=== PATIENT | male | born 1995 | race Caucasian/White ===

== ENCOUNTER → 2024-02-21 11:50 | Outpatient (REF) | payer MEDICARE, SELFPAY | LOC: EEG 11:50 | PROVIDERS: ATTENDING PHYSICIAN Psychiatry & Neurology Neurology; FAMILY PHYSICIAN Family Medicine | DX: F84.0 Autistic disorder (principal); R25.9 Unspecified abnormal involuntary movements | CPT/HCPCS: 95812 ==

== ENCOUNTER 2024-08-05 10:12 | Emergency (ER) | payer MEDICARE, SELFPAY ==
[2024-08-05 10:18] VITALS: BP 131/87
--- NOTE | 2024-08-05 10:50 | ED.GENMED ---
History of Present Illness
General
Chief Complaint: Oral/Mouth Problem
Source: patient
Exam Limitations: none
Time Seen by Provider: 08/05/24 10:33
Nursing documentation reviewed up to this point in time: agreed with
History of Present Illness
History of Present Illness:
pt is a 28 y/o M with h/o autism nonverbal, OCD, HTN, seizures
here after pointing to his mouth this morning and the staff noticing somem swelling to the R cheek area. he apparently ate his breakfast but they aren't sure how it went down, if he had trouble chewing or not
he doesn't verbalize much so the history is limiting
he wasn't noticed to have any swelling or issues yesterday by staff
no known fever, vomiting, trouble swallowing, trouble breathing
no recent dental visits
Past History
Past History
ED Past Medical History: HTN, Psychiatric (Anxiety, impulse control disorder, autism) and Other (constipation with hemorrhoids, autism, OCD, esophagitis, dermatitis,)
ED Past Surgical History: None
Patient has exhibited threatening behavior?: Yes
Date of threatening behavior? (updated with each occurrence): 08/25/23
Social History
Tobacco: Non-smoker
Alcohol: None
Drug: None
Personal: Single
Living: assisted living
Employment: Not employed
Family History
Family History: Unable to obtain
Review of Systems
Review of Systems
Allergies reviewed?: Yes
Unable to obtain full review of systems at this time due to: non-verbal
Other source history: coordinated provider
Phy Exam
Physical Exam
Physical Exam:
GENERAL: Alert , in no apparent distress
NECK: Supple
ENT: o/p clr, mmm.
no obvious dental tenderness, no obvious fractures, no gingival swelling, no periapical abscess,
able to open mouth with encouragment 2 fingers (does not see to have pain but pt apprehensive about opening more)
no obvious parotid gland swelling, no sublingual swelling, no obvious peritonsillar edema or uvular deviation
difficult exam but i was able to visualize back of the throat
neck supple
no CYNTHIA
able to move neck
not drooling
CARDIAC: Regular rate and rhythm .
LUNGS: Clear breath sounds bilaterally, no acute respiratory distress, no wheezes/rales/rhonchi
SKIN: Warm and dry, skin intact.
PSYCH: nonverbal, cooperative, follows commands
Course
Orders/Labs/Results
Orders:
Orders
08/05/24 10:48
Clindamycin HCl [Cleocin] 300 mg PO NOW STA
Vital Signs
Initial and Last Documented VS:
Initial Vital Signs
Temp Pulse Resp BP Pulse Ox
97.9 F 84 16 131/87 99
08/05/24 10:18 08/05/24 10:18 08/05/24 10:18 08/05/24 10:18 08/05/24 10:18
Last Documented Vital Signs
Temp Pulse Resp BP Pulse Ox
97.9 F 84 16 131/87 99
08/05/24 10:18 08/05/24 10:18 08/05/24 10:18 08/05/24 10:18 08/05/24 10:18
MDM/Problems Addressed
Differential Diagnosis Includes:
parotiditis, dental abscess, pharyngitis/tonsillitis, sialolithaisis,
MDM/Problems Addressed:
28 y/o M nonverbal here with pointing to his mouth when they asked if he had pain
pt was given breakfast this morning by different staff who are with him now without any known difficulty eating but they noticed his face was a little swollen
pt has not had fever, drooling
he is nonverbal so difficult to assess
afebrile
nontoxic
doesn't appear in pain
very mild facial swelling R maxillary/mandible area; nontender; no cellulitis
opens mouth 2 finger breadths; seems to be more related to anxiety than pain
no obvious abnormalities otherwise on oral exam
seen by ed attending
will trial abx, clinda, which would cover dental infection, tonsillar infection, bacterial parotiidis and encourage staff to wtach closely for worsening pain, fever, swelling, trismus, drooling etc
an dreturn prn
*Critical Care Note
Total Time (30-74mins, 75-104mins- exclusive of procedures): Not Applicable
ED Attending Note
-
Portions of this chart may have been created with voice recognition software.� Occasional wrong word or��sound alike� substitutions may have occurred due to the inherent limitations of voice recognition software.
Discharge Plan
Departure
Date of Disposition: 08/05/24
Time of Disposition: 11:00
Instructions: Tooth Abscess (DC)
Prescriptions:
New
clindamycin HCl 300 mg capsule
300 mg PO Q6H Qty: 40 0RF
No Action
clonidine HCl 0.1 MG tablet
0.1 mg PO DAILY
acetaminophen 325 MG tablet
650 mg PO Q4HPRN PRN (Reason: pain/fever)
polyethylene glycol 3350 17 GRAMS powder in packet
17 grams PO PRN PRN (Reason: constipation)
loxapine succinate 25 MG capsule
75 mg PO QPM
loxapine succinate 25 MG capsule
50 mg PO DAILY
sertraline 100 MG tablet
100 mg PO DAILY
clonazepam 1 MG tablet
1 mg PO TID
pantoprazole [Protonix] 20 MG tablet,delayed release (DR/EC)
20 mg PO DAILY
hydrocortisone 1 APPLIC cream
1 applic topical BID
divalproex 500 MG tablet extended release 24 hr
1,000 mg PO BID
docusate sodium 100 MG capsule
100 mg PO DAILYPRN PRN (Reason: constipation)
fluticasone propionate [Flovent HFA] 1 PUFF HFA aerosol inhaler
2 puff inhalation R BID
mupirocin 1 APPLIC ointment
1 applic topical PRN PRN (Reason: atopic dermatitis)
alum-mag hydroxide-simeth [Mag-Al Plus] 30 ML suspension
30 ml PO QIDPRN PRN (Reason: indigestion)
loratadine 10 MG tablet
10 mg PO DAILY
Metamucil Sugar-Free (aspart) 174 GM powder
1,040 gm PO DAILY
Calci-Max 1 EACH capsule
1 tab PO DAILY
L.acidoph, paracasei,B. lactis 1 EACH capsule
1 ea PO DAILY
mupirocin 2 % ointment
1 applic topical BID Qty: 22 0RF
clonazepam [Klonopin] 2 mg tablet
2 mg PO TID Qty: 30 0RF
cephalexin 500 mg capsule
500 mg PO BID 7 Days Qty: 14 0RF
Activity Restrictions/Additional Instructions:
QUENTIN PROBABLY HAS A DENTAL INFECTION
HE HAD NO OBVIOUS SIGN OF AN ABSCESS TO DRAIN TODAY BUT HE PROBABLY SHOULD SEE A DENTIST THIS WEEK OR NEXT
WATCH HIM CLOSELY
IF HIS SWELLING GETS WORSE, OR HE HAS A FEVER, TROUBLE EATING OR OPENING MOUTH, DROOLING, LETHARGY, NECK SWELLING, ETC HE NEEDS TO BE SEEN IMMEDIATELY
OTHERWISE CLINDAMYCIN 300 MG 1 TAB 4 TIMES ADAY FOR 10 DAYS
SOFT FOODS FOR NOW
MOTRIN FOR PAIN/SWELLING NEEDED
Interventions
Interventions:
*Risk Screen - Suicide Last Done: 08/05/24 10:19
*Neglect/Abuse Screening Last Done: 08/05/24 10:19
Discharge Date and Time
Print Language: CITIZEN OF [place]
[2024-08-05] MEDS: CLEOCIN 300 MG PO (11:04)
--- NOTE | 2024-08-05 11:13 | EDRN ---
Reviewed discharge instructions with patient's caregivers. Verbalized understanding. Ambulated with steady gait to the lobby.
[2024-08-05 11:15] VITALS: BP 132/74
== END 2024-08-05 11:10 | disposition home or self-care (01) ==
LOC: EMR 10:12
PROVIDERS: EMERGENCY PHYSICIAN Emergency Medicine; FAMILY PHYSICIAN Family Medicine
DX: R22.0 Localized swelling, mass and lump, head (principal); F84.0 Autistic disorder; I10 Essential (primary) hypertension
CPT/HCPCS: 99283

== ENCOUNTER 2024-09-09 14:07 | Emergency (ER) | payer MEDICARE, SELFPAY ==
[2024-09-09 14:10] VITALS: BP 141/77
--- NOTE | 2024-09-09 14:51 | ED.GENMED ---
History of Present Illness
General
Chief Complaint: Head Injury
Source: patient
Exam Limitations: none
Time Seen by Provider: 09/09/24 14:10
Nursing documentation reviewed up to this point in time: agreed with
History of Present Illness
History of Present Illness:
The patient is a 28-year-old man with a past medical history of autism and psychosis, who is nonverbal at baseline, and brought in by caretakers after he got extremely agitated and banged his head against a glass window in a van, causing the window
to break and shatter. Caretakers report that there was no loss of consciousness. They report that his behavior has been completely normal for him and at his baseline. The injury occurred about an hour prior to arrival to the ED. They deny any
lethargy or vomiting and report he is 'acting as if nothing happened'. Patient has no cut or abrasion to his forehead. He does have mild redness to forehead. Caretakers report that he had been on his way to get lab work done at [facility] in
[place], got angry about having to do so which caused this episode.
Past History
Past History
ED Past Medical History: HTN, Psychiatric (Anxiety, impulse control disorder, autism) and Other (constipation with hemorrhoids, autism, OCD, esophagitis, dermatitis,)
ED Past Surgical History: None
Patient has exhibited threatening behavior?: Yes
Date of threatening behavior? (updated with each occurrence): 08/25/23
Social History
Tobacco: Non-smoker
Alcohol: None
Drug: None
Personal: Single
Living: assisted living
Employment: Not employed
Family History
Family History: Unable to obtain
Review of Systems
Review of Systems
Allergies reviewed?: Yes
All Other Systems: Not applicable
Phy Exam
Physical Exam
Physical Exam:
Physical Exam
General: no apparent distress, bizarre affect but does not appear in any acute distress. Calm and cooperative. Mild frontal scalp contusion with no overlying abrasion or laceration. I did palpate patient's scalp, face, head,
neck and hands and patient has no sign of embedded glass
Neck: supple.
Heart: s1/s2 regular rate and rhythm,
Lungs: no acute respiratory distress. clear bilaterally
Abdomen: Soft, nontender
Neuro: alert, nonfocal, extraocular muscles intact, PERRL
Skin: no rash
Psychiatric: well kept. interactive and cooperative
Extremities: Moves all extremities equally. No sign of any bony tenderness or deformity. Old appearing bruises on bilateral forearms
Course
Orders/Labs/Results
Orders:
Orders
09/09/24 15:15
Complete Blood Count/With Diff Urgent
Comprehensive Metabolic Panel Urgent
09/09/24 15:16
Valproic Acid Level [Depakane] Urgent
09/09/24 15:27
Add On- LAB Urgent
Tests Added?: valproic acid
Abnormal Lab Results
09/09/24
15:15
MCV 79.1 L fL
(80.0-94.0)
MCH 24.9 L pg
(27.0-31.0)
MCHC 31.4 L g/dL
(33.0-37.0)
RDW 22.0 H %
(11.5-14.5)
MPV 10.7 H fL
(7.4-10.4)
Abs Immat Gran (auto) 0.1 H 10^3/uL
(0-0.05)
Immature Gran % 1.8 H %
(0-0.5)
Glucose 101 H mg/dl
(70-99)
Total Bilirubin 0.1 L mg/dl
(0.2-1.3)
09/09/24 15:15
09/09/24 15:15
Vital Signs
Initial and Last Documented VS:
Initial Vital Signs
Temp Pulse Resp BP Pulse Ox
98.8 F 110 16 141/77 97
09/09/24 14:10 09/09/24 14:10 09/09/24 14:10 09/09/24 14:10 09/09/24 14:10
Last Documented Vital Signs
Temp Pulse Resp BP Pulse Ox
98.8 F 110 16 141/77 97
09/09/24 14:10 09/09/24 14:10 09/09/24 14:10 09/09/24 14:10 09/09/24 14:10
MDM/Problems Addressed
Differential Diagnosis Includes:
Scalp contusion, intracranial hemorrhage, closed head injury
MDM/Problems Addressed:
Patient presents with acute scalp hematoma after hitting his head against glass of a van window
Chronic conditions affecting care:
History of nonverbal autism which makes it more difficult to assess patient
*Pulse Oximetry
Patient hypoxic: no
*EKG
Interpreted by ED Provider?: NA
*Loss Prevention Analyst Interpretation
Rate: Loss Prevention Analyst- N/A
*Critical Care Note
Total Time (30-74mins, 75-104mins- exclusive of procedures): Not Applicable
Data Reviewed
Source: patient and other (Caretakers)
Further Testing Considered But Not Given:
I I consider doing a CT of the patient, however, there is no loss of consciousness, he looks completely well and comfortable, there are no significant scalp deformities, patient has not been lethargic or any episodes of vomiting. Decision made to
hold off on CT and observe patient in the ED. Blood work offered to be done in the ED given that they were on their way to get the patient's blood work done at [facility] and were unable to get there due to his behavior.
Patient Management
Social determinants of health affecting care: Living situation and Strong social support
Escalation/DeEscalation of care consider admission/obs:
I spoke to the caretakers as well as the material handling crew supervisor for the patient. They are all agreeable that they will bring patient back immediately with any mental status changes, lethargy or vomiting.
ED Attending Note
-
Portions of this chart may have been created with voice recognition software.� Occasional wrong word or��sound alike� substitutions may have occurred due to the inherent limitations of voice recognition software.
Discharge Plan
Departure
Patient Disposition: Home (Routine Discharge)
Date of Disposition: 09/09/24
Time of Disposition: 15:43
Patient with high blood pressure during this ER visit?: Yes
Condition: Good
Covid-19: Not Applicable
Discharge Problem:
Closed head injury
Instructions: Minor Head Injury (DC)
Prescriptions:
No Action
clonidine HCl 0.1 MG tablet
0.1 mg PO DAILY
acetaminophen 325 MG tablet
650 mg PO Q4HPRN PRN (Reason: pain/fever)
polyethylene glycol 3350 17 GRAMS powder in packet
17 grams PO PRN PRN (Reason: constipation)
loxapine succinate 25 MG capsule
75 mg PO QPM
loxapine succinate 25 MG capsule
50 mg PO DAILY
sertraline 100 MG tablet
100 mg PO DAILY
clonazepam 1 MG tablet
1 mg PO TID
pantoprazole [Protonix] 20 MG tablet,delayed release (DR/EC)
20 mg PO DAILY
hydrocortisone 1 APPLIC cream
1 applic topical BID
divalproex 500 MG tablet extended release 24 hr
1,000 mg PO BID
docusate sodium 100 MG capsule
100 mg PO DAILYPRN PRN (Reason: constipation)
fluticasone propionate [Flovent HFA] 1 PUFF HFA aerosol inhaler
2 puff inhalation R BID
mupirocin 1 APPLIC ointment
1 applic topical PRN PRN (Reason: atopic dermatitis)
alum-mag hydroxide-simeth [Mag-Al Plus] 30 ML suspension
30 ml PO QIDPRN PRN (Reason: indigestion)
loratadine 10 MG tablet
10 mg PO DAILY
Metamucil Sugar-Free (aspart) 174 GM powder
1,040 gm PO DAILY
Calci-Max 1 EACH capsule
1 tab PO DAILY
L.acidoph,paracasei,B.animalis 1 EACH capsule
1 ea PO DAILY
mupirocin 2 % ointment
1 applic topical BID Qty: 22 0RF
clonazepam [Klonopin] 2 mg tablet
2 mg PO TID Qty: 30 0RF
cephalexin 500 mg capsule
500 mg PO BID 7 Days Qty: 14 0RF
clindamycin HCl 300 mg capsule
300 mg PO Q6H Qty: 40 0RF
Referrals:
NONE,* [Family Provider] -
Activity Restrictions/Additional Instructions:
Return immediately with any vomiting, or if Drake's behavior changes, such as drowsiness, dizziness or lethargy
Interventions
Interventions:
*Risk Screen - Suicide Last Done: 09/09/24 14:13
*General Assessment Last Done: 09/09/24 14:13
*Neglect/Abuse Screening Last Done: 09/09/24 14:13
ED- Fall Risk Assessment Last Done: 09/09/24 17:50
*ED COVID-19 Vaccine History Last Done: 09/09/24 14:13
*Nursing Disposition Last Done: 09/09/24 17:50
ED- Neurological Assessment Last Done: 09/09/24 14:14
ED-Skin Assessment Last Done: 09/09/24 14:14
Discharge Date and Time
Discharge Date/Time: 09/09/24 17:50
Print Language: [place]
[2024-09-09 15:30] LABS: % Basophils 0.6 % (0-2); % Eosinophils 1.3 % (0-6); % Immature Granulocytes 1.8 % (0-0.5); % Lymphocytes 23.2 % (20.5-51.1); % Monocytes 7.9 % (1.7-9.3); % Neutrophils 65.2 % (42.2-75.2); Absolute Eosinophils 0.1 10^3/uL (0-0.7); Absolute Immature Granulocytes 0.1 10^3/uL (0-0.05); Absolute Lymphocytes 1.6 10^3/uL (1.2-3.4); Absolute Monocytes 0.5 10^3/uL (0.1-0.6); Absolute Neutrophils 4.4 10^3/uL (1.4-6.5); Hematocrit 44.2 % (39.0-52.0); Hemoglobin 13.9 g/dL (13.0-18.0); Mean Corp Hgb Conc. 31.4 g/dL (33.0-37.0); Mean Corpuscular Hgb 24.9 pg (27.0-31.0); Mean Corpuscular Volume 79.1 fL (80.0-94.0); Mean Platelet Volume 10.7 fL (7.4-10.4); Nucleated Red Blood Cells % 0 % (-); Platelet Count 212 10^3/uL (130-400); Red Blood Cell Count 5.59 10^6/uL (4.70-6.10); White Blood Cell Count 6.7 10^3/uL (4.8-10.8)
[2024-09-09 15:38] LABS: ALT (SGPT) 20 U/L (0-50); AST (SGOT) 26 U/L (17-59); Albumin 4.3 g/dl (3.5-5.0); Alkaline Phosphatase 67 U/L (38-126); Blood Urea Nitrogen 16 mg/dl (9-20); Calcium 9.2 mg/dl (8.4-10.2); Carbon Dioxide 27 mmol/L (22-30); Chloride 104 mmol/L (98-107); Glucose 101 mg/dl (70-99); Potassium 4.3 mmol/L (3.5-5.1); Sodium 142 mmol/L (135-145); Total Bilirubin 0.1 mg/dl (0.2-1.3); Total Protein 6.7 g/dl (6.3-8.2); eGFR > 60.00
[2024-09-09 16:43] LABS: Depakane 72.7 ug/ml (50.0-120.0)
== END 2024-09-09 17:50 | disposition home or self-care (01) ==
LOC: EMR 14:07
PROVIDERS: EMERGENCY PHYSICIAN Emergency Medicine
DX: S00.03XA Contusion of scalp, initial encounter (principal); W22.8XXA Striking against or struck by other objects, initial encounter; F84.0 Autistic disorder; I10 Essential (primary) hypertension
CPT/HCPCS: 99283; 80053; 80164; 85025

== ENCOUNTER 2024-12-13 13:19 | Emergency (ER) | payer MEDICARE, SELFPAY ==
--- NOTE | 2024-12-13 14:21 | ED.SKININJ ---
HPI-Injury
General
Chief Complaint: Skin Surface Trauma
Source: day care attendant
Exam Limitations: non verbal-adult
Time Seen by Provider: 12/13/24 14:06
Nursing documentation reviewed up to this point in time: agreed with except (it is left hand, not right)
History of Present Illness-Injury
Initial Injury comments:
29-year-old male from home with his aide, he gets 24-hour supervision, with history of significant emotional and psychiatric disorders, is frequently with violent outbursts, staff found right fourth finger wound bleeding earlier today. Unsure how
the injury occurred.
Past History
Past History
ED Past Medical History: HTN, Psychiatric (Anxiety, impulse control disorder, autism) and Other (constipation with hemorrhoids, autism, OCD, esophagitis, dermatitis,)
ED Past Surgical History: None
Patient has exhibited threatening behavior?: Yes
Date of threatening behavior? (updated with each occurrence): 08/25/23
Social History
Tobacco: Non-smoker
Alcohol: None
Drug: None
Personal: Single
Living: assisted living
Employment: Not employed
Family History
Family History: Unable to obtain
Review of Systems
Review of Systems
Allergies reviewed?: Yes
All Other Systems: ROS reviewed and negative except as documented in HPI and ROS
Skin: Reports other (2 small wounds on distal right fourth finger)
Phy Exam
Physical Exam
Physical Exam:
PHYSICAL EXAMINATION:
General: no apparent distress, not acutely ill
Neuro: alert
Psychiatric: Patient is uncooperative, non verbal
Musculoskeletal: Moves with ease
Skin: Warm, pink. There is a 3 to 4 mm skin avulsion distal aspect of left fourth finger and a 2 mm more superficial avulsion on finger pad. Bleeding has stopped
MDM/Problems Addressed
MDM/Problems Addressed:
29-year-old male from home with his aide, he gets 24-hour supervision, with history of significant emotional and psychiatric disorders, is frequently with violent outbursts, staff found right fourth finger wound bleeding earlier today. Unsure how
the injury occurred.
Wounds are relatively small, skin avulsions, bleeding has stopped.
Wounds cleansed, Gelfoam and double Band-Aid dressing applied.
*Critical Care Note
Total Time (30-74mins, 75-104mins- exclusive of procedures): Not Applicable
ED Attending Note
-
Portions of this chart may have been created with voice recognition software.� Occasional wrong word or��sound alike� substitutions may have occurred due to the inherent limitations of voice recognition software.
Discharge Plan
Departure
Patient Disposition: Home (Routine Discharge)
Date of Disposition: 12/13/24
Time of Disposition: 14:27
Patient with high blood pressure during this ER visit?: No
Condition: Good
Discharge Problem:
Avulsion of skin of finger
Instructions: Wound Care (DC)
Prescriptions:
No Action
clonidine HCl 0.1 MG tablet
0.1 mg PO DAILY
acetaminophen 325 MG tablet
650 mg PO Q4HPRN PRN (Reason: pain/fever)
polyethylene glycol 3350 17 GRAMS powder in packet
17 grams PO PRN PRN (Reason: constipation)
loxapine succinate 25 MG capsule
75 mg PO QPM
loxapine succinate 25 MG capsule
50 mg PO DAILY
sertraline 100 MG tablet
100 mg PO DAILY
clonazepam 1 MG tablet
1 mg PO TID
pantoprazole [Protonix] 20 MG tablet,delayed release (DR/EC)
20 mg PO DAILY
hydrocortisone 1 APPLIC cream
1 applic topical BID
divalproex 500 MG tablet extended release 24 hr
1,000 mg PO BID
docusate sodium 100 MG capsule
100 mg PO DAILYPRN PRN (Reason: constipation)
fluticasone propionate [Flovent HFA] 1 PUFF HFA aerosol inhaler
2 puff inhalation R BID
mupirocin 1 APPLIC ointment
1 applic topical PRN PRN (Reason: atopic dermatitis)
alum-mag hydroxide-simeth [Mag-Al Plus] 30 ML suspension
30 ml PO QIDPRN PRN (Reason: indigestion)
loratadine 10 MG tablet
10 mg PO DAILY
Metamucil Sugar-Free (aspart) 174 GM powder
1,040 gm PO DAILY
Calci-Max 1 EACH capsule
1 tab PO DAILY
L.acidoph,paracasei,B.animalis 1 EACH capsule
1 ea PO DAILY
mupirocin 2 % ointment
1 applic topical BID Qty: 22 0RF
clonazepam [Klonopin] 2 mg tablet
2 mg PO TID Qty: 30 0RF
cephalexin 500 mg capsule
500 mg PO BID 7 Days Qty: 14 0RF
clindamycin HCl 300 mg capsule
300 mg PO Q6H Qty: 40 0RF
Referrals:
UNKNOWN - PT NOT,INTERVIEWE [Family Provider] -
Activity Restrictions/Additional Instructions:
As we discussed, try to leave the Gelfoam dressing on for at least 24 hours. You may remove it tomorrow and then wash the wound daily with soap and water, apply antibiotic ointment and fresh bandage until well-healed which should take about 2 weeks.
Seek medical care for signs of infection which may include increasing redness, swelling, pus drainage, pain
Interventions
Interventions:
*General Assessment Last Done: 12/13/24 13:24
*ED COVID-19 Vaccine History Last Done: 12/13/24 13:24
*Nursing Disposition Last Done: 12/13/24 14:36
ED-Skin Assessment Last Done: 12/13/24 13:24
Discharge Date and Time
Discharge Date/Time: 12/13/24 14:38
Print Language: [place]
== END 2024-12-13 14:38 | disposition home or self-care (01) ==
LOC: EMR 13:19
PROVIDERS: EMERGENCY PHYSICIAN Student in an Organized Health Care Education/Training Program
DX: S61.205A Unspecified open wound of left ring finger without damage to nail, initial encounter (principal); X58.XXXA Exposure to other specified factors, initial encounter
CPT/HCPCS: 99283

== ENCOUNTER 2025-01-19 10:40 | Emergency (ER) | payer MEDICARE, SELFPAY ==
[2025-01-19 10:40] VITALS: BP 128/78
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
[2025-01-19] MEDS: LET TOPICAL ANESTHETIC GEL 3 ML TOPICAL (11:59)
== END 2025-01-19 12:43 | disposition home or self-care (01) ==
LOC: EMR 10:40
PROVIDERS: EMERGENCY PHYSICIAN Emergency Medicine
DX: S61.215A Laceration without foreign body of left ring finger without damage to nail, initial encounter (principal); W45.8XXA Other foreign body or object entering through skin, initial encounter; F41.9 Anxiety disorder, unspecified; F42.9 Obsessive-compulsive disorder, unspecified; F84.0 Autistic disorder; I10 Essential (primary) hypertension
CPT/HCPCS: 99282

== ENCOUNTER 2025-03-07 13:39 | Emergency (ER) | payer MEDICARE, SELFPAY ==
[2025-03-07 13:47] VITALS: BP 149/93
--- NOTE | 2025-03-07 14:30 | ED.SKININJ ---
HPI-Injury
General
Chief Complaint: Head Injury
Source: patient
Exam Limitations: none
Time Seen by Provider: 03/07/25 14:20
History of Present Illness-Injury
Initial Injury comments:
29-year-old male with history of autism nonverbal but does understand verbal communication presents with caregivers who states he has a history of self harming behaviors. Today he was banging his head against the wall and they noticed some blood
around the right eyebrow. They brought him in for evaluation. There is no loss of conscious. He has been no vomiting since then. He has been himself since then.
Past History
Past History
ED Past Medical History: HTN, Psychiatric (Anxiety, impulse control disorder, autism) and Other (constipation with hemorrhoids, autism, OCD, esophagitis, dermatitis,)
ED Past Surgical History: None
Patient has exhibited threatening behavior?: Yes
Date of threatening behavior? (updated with each occurrence): 08/25/23
Social History
Tobacco: Non-smoker
Alcohol: None
Drug: None
Personal: Single
Living: assisted living
Employment: Not employed
Family History
Family History: Unable to obtain
Phy Exam
Physical Exam
Physical Exam:
General: Well-appearing male no acute respiratory distress
HEENT normocephalic very superficial half centimeter nonbleeding well-approximated laceration lateral aspect right eyebrow. Pupils equal round reactive to light neurologic: Good muscle tone following commands alert
Course
Vital Signs
Initial and Last Documented VS:
Initial Vital Signs
Temp Pulse Resp BP Pulse Ox
98.3 F 118 22 149/93 96
03/07/25 13:47 03/07/25 13:47 03/07/25 13:47 03/07/25 13:47 03/07/25 13:47
Last Documented Vital Signs
Temp Pulse Resp BP Pulse Ox
98.3 F 118 22 149/93 96
03/07/25 13:47 03/07/25 13:47 03/07/25 13:47 03/07/25 13:47 03/07/25 13:47
MDM/Problems Addressed
Differential Diagnosis Includes:
Superficial laceration right lateral eyebrow well-approximated not bleeding currently no neurologic deficit acting his baseline mechanism of injury not severe considered CT but not indicated. The wound was cleansed with saline and held in
approximation with skin adhesive. Wound care instructions were given. Stable for discharge
*Critical Care Note
Total Time (30-74mins, 75-104mins- exclusive of procedures): Not Applicable
ED Attending Note
-
Portions of this chart may have been created with voice recognition software.� Occasional wrong word or��sound alike� substitutions may have occurred due to the inherent limitations of voice recognition software.
Discharge Plan
Departure
Patient Disposition: Home (Routine Discharge)
Date of Disposition: 03/07/25
Time of Disposition: 14:42
Patient with high blood pressure during this ER visit?: No
Discharge Problem:
Laceration
Instructions: Laceration Repair With Glue (DC), Wound Care (DC)
Prescriptions:
No Action
clonidine HCl 0.1 MG tablet
0.1 mg PO DAILY
acetaminophen 325 MG tablet
650 mg PO Q4HPRN PRN (Reason: pain/fever)
polyethylene glycol 3350 17 GRAMS powder in packet
17 grams PO PRN PRN (Reason: constipation)
loxapine succinate 25 MG capsule
75 mg PO QPM
loxapine succinate 25 MG capsule
50 mg PO DAILY
sertraline 100 MG tablet
100 mg PO DAILY
clonazepam 1 MG tablet
1 mg PO TID
pantoprazole [Protonix] 20 MG tablet,delayed release (DR/EC)
20 mg PO DAILY
hydrocortisone 1 APPLIC cream
1 applic topical BID
divalproex 500 MG tablet extended release 24 hr
1,000 mg PO BID
docusate sodium 100 MG capsule
100 mg PO DAILYPRN PRN (Reason: constipation)
fluticasone propionate [Flovent HFA] 1 PUFF HFA aerosol inhaler
2 puff inhalation R BID
mupirocin 1 APPLIC ointment
1 applic topical PRN PRN (Reason: atopic dermatitis)
alum-mag hydroxide-simeth [Mag-Al Plus] 30 ML suspension
30 ml PO QIDPRN PRN (Reason: indigestion)
loratadine 10 MG tablet
10 mg PO DAILY
Metamucil Sugar-Free (aspart) 174 GM powder
1,040 gm PO DAILY
Calci-Max 1 EACH capsule
1 tab PO DAILY
L.acidoph,paracasei,B.animalis 1 EACH capsule
1 ea PO DAILY
mupirocin 2 % ointment
1 applic topical BID Qty: 22 0RF
clonazepam [Klonopin] 2 mg tablet
2 mg PO TID Qty: 30 0RF
cephalexin 500 mg capsule
500 mg PO BID 7 Days Qty: 14 0RF
clindamycin HCl 300 mg capsule
300 mg PO Q6H Qty: 40 0RF
Referrals:
UNKNOWN - PT NOT,INTERVIEWE [Family Provider]
Activity Restrictions/Additional Instructions:
Keep dry for 24 hours. The glue should dissolve on its own. Return if needed otherwise
Interventions
Interventions:
*Risk Screen - Suicide Last Done: 03/07/25 13:47
*General Assessment Last Done: 03/07/25 13:47
*Neglect/Abuse Screening Last Done: 03/07/25 13:47
ED- Neurological Assessment Last Done: 03/07/25 13:55
ED-Skin Assessment Last Done: 03/07/25 13:55
Discharge Date and Time
Print Language: DUTCH
== END 2025-03-07 15:01 | disposition home or self-care (01) ==
LOC: EMR 13:39
PROVIDERS: EMERGENCY PHYSICIAN Emergency Medicine
DX: S09.90XA Unspecified injury of head, initial encounter (principal); W22.01XA Walked into wall, initial encounter; I10 Essential (primary) hypertension; F41.9 Anxiety disorder, unspecified; F42.9 Obsessive-compulsive disorder, unspecified; F84.0 Autistic disorder; Z87.19 Personal history of other diseases of the digestive system; Z91.52 Personal history of nonsuicidal self-harm
CPT/HCPCS: 99282

== ENCOUNTER 2025-03-20 08:12 | Emergency (ER) | payer MEDICARE, SELFPAY ==
[2025-03-20 08:17] VITALS: BP 147/90
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
== END 2025-03-20 09:15 | disposition home or self-care (01) ==
LOC: EMR 08:12
PROVIDERS: EMERGENCY PHYSICIAN Emergency Medicine; FAMILY PHYSICIAN Psychiatry & Neurology Psychiatry
DX: S01.01XA Laceration without foreign body of scalp, initial encounter (principal); W22.09XA Striking against other stationary object, initial encounter; I10 Essential (primary) hypertension; F84.0 Autistic disorder
CPT/HCPCS: 12002; 99282

== ENCOUNTER 2025-03-26 08:31 | Emergency (ER) | payer MEDICARE, SELFPAY ==
[2025-03-26 08:48] VITALS: BP 134/88
--- NOTE | 2025-03-26 09:39 | ED.GENMED ---
History of Present Illness
General
Chief Complaint: Wound Check/Suture Removal
Source: records and child care worker
Exam Limitations: non verbal-adult
Time Seen by Provider: 03/26/25 09:27
History of Present Illness
History of Present Illness:
29yoM with a history of autism (non-verbal at baseline) presenting with his caregivers for staple removal. He had 3 mango placed to his scalp on 03/20/25 and he is here to get them removed. Caregivers have no other concerns at this time.
Past History
Past History
ED Past Medical History: HTN, Psychiatric (Anxiety, impulse control disorder, autism) and Other (constipation with hemorrhoids, autism, OCD, esophagitis, dermatitis,)
ED Past Surgical History: None
Patient has exhibited threatening behavior?: Yes
Date of threatening behavior? (updated with each occurrence): 08/25/23
Social History
Tobacco: Non-smoker
Alcohol: None
Drug: None
Personal: Single
Living: assisted living
Employment: Not employed
Family History
Family History: Unable to obtain
Phy Exam
General Physical Exam
General Presentation: well appearing and no apparent distress
General Skin: warm and dry
General Habitus: normal
General Mental: alert
ENT Exam
ENT Exam: other (Mango in place to posterior scalp. Wound scabbed over.)
Pulmonary Exam
Pulmonary Exam: no respiratory distress
Neurological Exam
Neurological Exam: alert
Skin Exam
Skin Exam: normal color and warm/dry
Course
Vital Signs
Initial and Last Documented VS:
Initial Vital Signs
Temp Pulse Resp BP
98.2 F 103 16 134/88
03/26/25 08:48 03/26/25 08:48 03/26/25 08:48 03/26/25 08:48
Last Documented Vital Signs
Temp Pulse Resp BP
98.2 F 103 16 134/88
03/26/25 08:48 03/26/25 08:48 03/26/25 08:48 03/26/25 08:48
MDM/Problems Addressed
Differential Diagnosis Includes:
29yoM here for staple removal after 3 mango placed 6 days ago. Wound is scabbed over on exam and there are no signs of infection noted. Hydrogen peroxide used to remove some of the scabbing and facilitate staple removal. Three mango removed
without bleeding or complication. Patient discharged in stable condition.
*Pulse Oximetry
Patient hypoxic: not evaluated
*Critical Care Note
Total Time (30-74mins, 75-104mins- exclusive of procedures): Not Applicable
ED Attending Note
-
Portions of this chart may have been created with voice recognition software.� Occasional wrong word or��sound alike� substitutions may have occurred due to the inherent limitations of voice recognition software.
Discharge Plan
Departure
Patient Disposition: Home (Routine Discharge)
Date of Disposition: 03/26/25
Time of Disposition: 09:37
Patient with high blood pressure during this ER visit?: No
Discharge Problem:
Encounter for removal of mango
Instructions: Removing mango
Prescriptions:
No Action
clonidine HCl 0.1 MG tablet
0.1 mg PO DAILY
acetaminophen 325 MG tablet
650 mg PO Q4HPRN PRN (Reason: pain/fever)
polyethylene glycol 3350 17 GRAMS powder in packet
17 grams PO PRN PRN (Reason: constipation)
loxapine succinate 25 MG capsule
75 mg PO QPM
loxapine succinate 25 MG capsule
50 mg PO DAILY
sertraline 100 MG tablet
100 mg PO DAILY
clonazepam 1 MG tablet
1 mg PO TID
pantoprazole [Protonix] 20 MG tablet,delayed release (DR/EC)
20 mg PO DAILY
hydrocortisone 1 APPLIC cream
1 applic topical BID
divalproex 500 MG tablet extended release 24 hr
1,000 mg PO BID
docusate sodium 100 MG capsule
100 mg PO DAILYPRN PRN (Reason: constipation)
fluticasone propionate [Flovent HFA] 1 PUFF HFA aerosol inhaler
2 puff inhalation R BID
mupirocin 1 APPLIC ointment
1 applic topical PRN PRN (Reason: atopic dermatitis)
alum-mag hydroxide-simeth [Mag-Al Plus] 30 ML suspension
30 ml PO QIDPRN PRN (Reason: indigestion)
loratadine 10 MG tablet
10 mg PO DAILY
Metamucil Sugar-Free (aspart) 174 GM powder
1,040 gm PO DAILY
Calci-Max 1 EACH capsule
1 tab PO DAILY
L.acidoph,paracasei,B.animalis 1 EACH capsule
1 ea PO DAILY
mupirocin 2 % ointment
1 applic topical BID Qty: 22 0RF
clonazepam [Klonopin] 2 mg tablet
2 mg PO TID Qty: 30 0RF
cephalexin 500 mg capsule
500 mg PO BID 7 Days Qty: 14 0RF
clindamycin HCl 300 mg capsule
300 mg PO Q6H Qty: 40 0RF
Referrals:
UNKNOWN - PT NOT,INTERVIEWE [Family Provider]
Activity Restrictions/Additional Instructions:
Three mango were removed today.
Return to the ER with any signs of infection.
Interventions
Interventions:
*Nursing Disposition Last Done: 03/26/25 09:38
Discharge Date and Time
Discharge Date/Time: 03/26/25 09:40
Print Language: ITALIAN
== END 2025-03-26 09:40 | disposition home or self-care (01) ==
LOC: EMR 08:31
PROVIDERS: EMERGENCY PHYSICIAN Emergency Medicine
DX: Z48.02 Encounter for removal of sutures (principal); F41.9 Anxiety disorder, unspecified; F42.9 Obsessive-compulsive disorder, unspecified; F84.0 Autistic disorder; I10 Essential (primary) hypertension; Z87.19 Personal history of other diseases of the digestive system
CPT/HCPCS: 99281

== ENCOUNTER 2025-05-19 15:00 | Inpatient (IN) | payer MEDICARE, SELFPAY ==
[2025-05-19 09:38] VITALS: BP 134/84
[2025-05-19] MEDS: MORPHINE SULFATE 4 MG IV (10:00)
[2025-05-19] MEDS: ZOFRAN 4 MG IV (10:01)
[2025-05-19] MEDS: VALIUM INJECTION 5 MG IV ×2 (10:22→23:39)
--- NOTE | 2025-05-19 11:27 | ED.GENMED ---
History of Present Illness
General
Chief Complaint: Fall
Source: patient and ambulance crew
Exam Limitations: other (autistic)
Time Seen by Provider: 05/19/25 09:36
Nursing documentation reviewed up to this point in time: agreed with
History of Present Illness
History of Present Illness:
Note:
CHIEF COMPLAINT(S)
Self-harming behavior and potential arm injury.
HISTORY OF PRESENT ILLNESS
The patient is a 29-year-old male who presents with episodes of self-harming behavior, which include throwing himself backward and intentionally hitting himself on the bed. Noteworthy is a past incident where he reportedly put his forehead through a
glass window a few weeks ago. The patient does not consent to routine assistance and exhibits resistance, such as pulling out of any planned examinations or treatments. There is concern for a possible fracture or dislocation in his arm due to his
behaviors. An attempt to get him onto a bed by himself and to put a shirt on revealed difficulty and possible pain which he did not explicitly communicate but resisted interventions.
REVIEW OF SYSTEMS
- Musculoskeletal: Potential arm injury, possible fracture or dislocation due to self-harming behavior reported.
- Psychiatric: Exhibits manipulative behavior and resistance to medical interventions.
PHYSICAL EXAM
General: Patient displays self-harming behavior.
Skin: Warm, dry.
Head: Normocephalic, atraumatic, but history of forehead injury.
Neck: Supple, trachea midline.
Eye, Ears, Nose, Mouth, and Throat: Oral mucosa moist.
Cardiovascular: Normal peripheral perfusion, No edema.
Respiratory: Respirations are non-labored.
Gastrointestinal: Abdomen nondistended.
Back: Normal range of motion, Normal alignment.
Musculoskeletal: Concern for potential fracture or dislocation due to self-inflicted injury, although specific details dependent on pending imaging.
Neurological: Alert and oriented to person, place, time, and situation, No focal neurological deficit observed.
Psychiatric: Cooperative when engaging, but generally resistant and exhibiting unpredictable behavior.
PLAN
The patient is to undergo an X-ray to ascertain the extent of any potential musculoskeletal injury, particularly concerning a suspected arm fracture or dislocation. Due to the patients manipulative behavior, additional care will be taken to ensure
cooperation during imaging. Further psychiatric evaluation may be necessary to address the patients self-harming behavior.
DIFFERENTIAL DIAGNOSIS
The differential diagnosis includes, in no particular order and is not limited to:
1. Fracture due to self-inflicted injury
2. Dislocation of arm
3. Psychotic disorder
4. Borderline personality disorder
5. Impulse control disorder
6. Acute stress reaction
7. Post-traumatic stress disorder
8. Somatic symptom disorder
9. Intermittent explosive disorder
10. Major depressive disorder with agitation
CARE-UPDATE
05/19/25 - 12:55
Plan for surgical intervention in the OR tomorrow morning by Dr. Gray. Assessment indicates that the patient�s neurological status remains intact.
Disposition:
SUMMARY OF ENCOUNTER
The patient, a 29-year-old male, presented with self-harming behavior and a suspected arm injury. Imaging confirmed a left distal humerus fracture. Pain management was initially provided. Given the nature and complications associated with
self-harming behavior, consultation with orthopedics was deemed necessary for both fracture management.
DISPOSITION
Admit to orthopedics.
ASSESSMENT
Left distal humerus fracture secondary to self-inflicted injury.
PLAN
The patient is planned for surgical intervention in the operating room by Dr. Gray.
INDEPENDENT REVIEW OF LABS AND INTERPRETATION OF TESTS
My independent interpretation of the X-ray is a confirmed left distal humerus fracture.
DIAGNOSIS
Left distal humerus fracture (ICD-10: S42.409A).
Past History
Past History
ED Past Medical History: HTN, Psychiatric (Anxiety, impulse control disorder, autism) and Other (constipation with hemorrhoids, autism, OCD, esophagitis, dermatitis,)
ED Past Surgical History: None
Patient has exhibited threatening behavior?: Yes
Date of threatening behavior? (updated with each occurrence): 08/25/23
Social History
Tobacco: Non-smoker
Alcohol: None
Drug: None
Personal: Single
Living: assisted living
Employment: Not employed
Family History
Family History: Unable to obtain
Phy Exam
Physical Exam
Physical Exam:
.
Course
Orders/Labs/Results
Orders:
Orders
05/19/25 09:35
CR Elbow - Left Min 2 View Stat
Comment: PORTABLE
Reason For Exam: possible fx
05/19/25 09:37
Morphine Sulfate 4 mg IV NOW STA
Ondansetron Injectable [Zofran] 4 mg IV NOW STA
05/19/25 10:03
CT Upper Ext W/o Iv Cont Lt Urgent
Comment:
Reason For Exam: left humerus to forearm swelling, pain, fall
05/19/25 10:18
diazePAM [Valium Injection] 5 mg IV NOW STA
05/19/25 12:13
HYDROmorphone [Dilaudid] 1 mg IV NOW STA
05/19/25 12:29
Type+Screen Urgent
Basic Metabolic Panel Urgent
Complete Blood Count/With Diff Urgent
05/19/25 12:59
Splints/Slings/Crut- Treatment ONCE
Type of Splint: Long Arm
05/19/25 13:02
ABO2 Urgent
BBK Wristband Number:
Associate notified that ABO2 has been ordered: RASHIDA-ER
Date: 05/19/25
Time: 12:40
Operator Command Support Systems ID: [id number]
05/20/25 Breakfast
NPO
Allow oral meds: Yes
Allow clear liquids: Sips of Clears
NPO for procedure after (time): after mn for OR 05/20
CeFAZolin 2 GRAM [Ancef] 2 grams in 10 ml IV PRE PROCEDURE
Abnormal Lab Results
05/19/25
12:29
WBC 11.8 H 10^3/uL
(4.8-10.8)
RBC 4.69 L 10^6/uL
(4.70-6.10)
Hgb 11.8 L g/dL
(13.0-18.0)
Hct 37.2 L %
(39.0-52.0)
MCV 79.3 L fL
(80.0-94.0)
MCH 25.2 L pg
(27.0-31.0)
MCHC 31.7 L g/dL
(33.0-37.0)
MPV 11.2 H fL
(7.4-10.4)
Abs Immat Gran (auto) 0.1 H 10^3/uL
(0-0.05)
Absolute Neuts (auto) 9.7 H 10^3/uL
(1.4-6.5)
Absolute Lymphs (auto) 1.1 L 10^3/uL
(1.2-3.4)
Absolute Monos (auto) 0.8 H 10^3/uL
(0.1-0.6)
Neutrophils % 82.5 H %
(42.2-75.2)
Lymphocytes % 9.7 L %
(20.5-51.1)
05/19/25 12:29
05/19/25 12:29
Vital Signs
Initial and Last Documented VS:
Initial Vital Signs
Pulse BP Pulse Ox
97 134/84 96
05/19/25 09:38 05/19/25 09:38 05/19/25 09:38
Last Documented Vital Signs
Pulse BP Pulse Ox
97 134/84 96
05/19/25 09:38 05/19/25 09:38 05/19/25 11:28
Procedures
Splint Check
Splint checked by provider?: Yes
Circulation/Movement/Sensation post splint application: brisk cap refill and full sensation
*Pulse Oximetry
SaO2: 96
Oxygen Mode of Delivery: Room air
Patient hypoxic: no
*Critical Care Note
Total Time (30-74mins, 75-104mins- exclusive of procedures): Not Applicable
ED Attending Note
-
Portions of this chart may have been created with voice recognition software.� Occasional wrong word or��sound alike� substitutions may have occurred due to the inherent limitations of voice recognition software.
Discharge Plan
Departure
Patient Disposition: Admit
Date of Disposition: 05/19/25
Time of Disposition: 10:09
Admit to: Med/Surg
Presentation/result/management discussed w/ accepting MD/DO: Hospitalist
Patient with high blood pressure during this ER visit?: Yes
Condition: Good
Discharge Problem:
Fracture of distal humerus
Prescriptions:
No Action
clonidine HCl 0.1 MG tablet
0.1 mg PO QPM
loxapine succinate 25 MG capsule
75 mg PO QPM
loxapine succinate 25 MG capsule
50 mg PO DAILY
pantoprazole [Protonix] 20 MG tablet,delayed release (DR/EC)
20 mg PO DAILY
divalproex 250 mg Tablet,Delayed Release (Dr/Ec)
750 mg PO BID
cetirizine [Zyrtec] 10 mg Tablet
10 mg PO DAILY
Metamucil Packet
1 packet PO DAILY
ferrous sulfate 325 mg (65 mg iron) Tablet
325 mg PO DAILY
Dupixent Pen 300 mg/2 mL Pen Injector
300 mg SC FR
[employer] 3 billion cell Capsule
1 cap PO DAILY
Bfxowku-Ltaivdyhg-Fpyg Complex 167 mg calcium- 83 mg-5 mg Capsule
1 cap PO DAILY
clonazepam [Klonopin] 2 mg tablet
2 mg PO TID@0700,1200,1800
Referrals:
UNKNOWN - PT NOT,INTERVIEWE [Family Provider]
Interventions
Interventions:
*Risk Screen - Suicide Last Done: 05/19/25 09:52
*General Assessment Last Done: 05/19/25 09:51
*Neglect/Abuse Screening Last Done: 05/19/25 09:52
*ED COVID-19 Vaccine History Last Done: 05/19/25 09:51
Discharge Date and Time
Print Language: TUNISIAN
[2025-05-19] MEDS: DILAUDID 1 MG IV ×2 (12:17→20:34)
[2025-05-19 12:38] LABS: Hematocrit 37.2 % (39.0-52.0); Hemoglobin 11.8 g/dL (13.0-18.0); Mean Corp Hgb Conc. 31.7 g/dL (33.0-37.0); Mean Corpuscular Volume 79.3 fL (80.0-94.0); Nucleated Red Blood Cells % 0 % (-); Platelet Count 243 10^3/uL (130-400); Red Cell Dist. Width 13.9 % (11.5-14.5)
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
[2025-05-19 13:01] LABS: Blood Urea Nitrogen 14 mg/dl (9-20); Calcium 8.6 mg/dl (8.4-10.2); Carbon Dioxide 25 mmol/L (22-30); Chloride 104 mmol/L (98-107); Glucose 99 mg/dl (70-99); Potassium 4.5 mmol/L (3.5-5.1); Sodium 136 mmol/L (135-145); eGFR > 60.00
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
[2025-05-19 15:37] VITALS: BP 129/79
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
[2025-05-19 20:15] VITALS: BP 155/102; BMI 22.8
[2025-05-19 20:25] VITALS: BP 155/102; BMI 22.8
[2025-05-19] MEDS: CATAPRES 0.1 MG PO (22:31)
[2025-05-19] MEDS: KLONOPIN 2 MG PO (22:32)
[2025-05-19] MEDS: DEPAKOTE (12 HR RELEASE) 750 MG PO (22:33)
[2025-05-19] MEDS: HEPARIN 5000 UNITS SC (22:33)
[2025-05-19 23:10] VITALS: BP 142/98
[2025-05-19] MEDS: DILAUDID 0.5 MG IV (23:18)
[2025-05-20] VITALS (14 sets, daily range): BP systolic 98–140; BP diastolic 54–88
[2025-05-20] MEDS: DILAUDID 1 MG IV ×2 (01:53→06:02)
[2025-05-20] MEDS: DILAUDID 0.5 MG IV ×3 (04:28→12:30)
[2025-05-20 06:20] LABS: Hematocrit 35.8 % (39.0-52.0); Hemoglobin 11.5 g/dL (13.0-18.0); Mean Corp Hgb Conc. 32.1 g/dL (33.0-37.0); Mean Corpuscular Volume 78.3 fL (80.0-94.0); Nucleated Red Blood Cells % 0 % (-); Platelet Count 244 10^3/uL (130-400); Red Cell Dist. Width 13.5 % (11.5-14.5)
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
--- NOTE | 2025-05-20 06:27 | PTCARENOTE ---
late entry 05/19 2045 received pt from ER via stretcher. pt accompanied by 2 aides from outside facility. pt non verbal, but occasionally will nod or moan when asked a question. Bed padded with pillows on side rails, foot board and blankets placed
over headboard for protection. bed alarm placed on bed. pt cooperative at this time.
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
--- NOTE | 2025-05-20 06:35 | PTCARENOTE ---
0500 pt moaning loudly, went into room to find lt arm bandage/splint removed and IV pulled out. Caregiver asleep on sofa, notified [employer]RIC[employer] DEVELOPMENT MANAGER, attempt to rewrap arm, pt escalated, Caregiver woke up attempting to help, pt visibly upset and becoming more
aggressive towards caregiver, swinging, punching, kicking and attempting to get oob. Caregiver physically trying to restrain pt, unsuccessfully. Caregiver went into bathroom d/t small area on hand bleeding and pt began to calm down. pt now
cooperative and RN able to rewrap arm quickly. IV team arrived and restarted IV without issues.
[2025-05-20 06:42] LABS: Blood Urea Nitrogen 16 mg/dl (9-20); Calcium 9.3 mg/dl (8.4-10.2); Carbon Dioxide 28 mmol/L (22-30); Chloride 102 mmol/L (98-107); Estimated Creatinine Clearance > 125 ml/min; Glucose 105 mg/dl (70-99); Potassium 4.6 mmol/L (3.5-5.1); Sodium 138 mmol/L (135-145); eGFR > 60.00
[2025-05-20] MEDS: DEPAKOTE (12 HR RELEASE) 750 MG PO ×2 (08:14→19:34)
[2025-05-20] MEDS: KLONOPIN 2 MG PO ×3 (08:15→19:34)
[2025-05-20] MEDS: HEPARIN 5000 UNITS SC ×2 (08:15→19:35)
[2025-05-20] MEDS: PROTONIX 20 MG PO (08:15)
[2025-05-20] MEDS: METAMUCIL, KONSYL 1 PACKET PO (08:15)
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
--- NOTE | 2025-05-20 08:59 | W.PN.UPDATE ---
Update Note
Progress Note Update
Patient at bed rest. On a 2:1. LUE splinted. Reasonably calm, but sense agitation. Plan for OR via Dr. Gray ~1400 for left distal humerus ORIF with olecranon osteotomy. Orders in and consent obtained to be a mother (POA). Remain NPO.
--- NOTE | 2025-05-20 09:13 | W.PN.UPDATE ---
Update Note
Progress Note Update
I saw and evaluated the patient. I reviewed the resident�s note and agree with findings and plan as documented in the resident�s note.
Pt nonverbal.
Gen: NAD, Awake and alert
Eyes: EOMI, PERRLA, no scleral icterus.
Neck: supple.
CV: tachy, reg rhythm, +S1/S2, no m/r/g.
Resp: CTAB anteriorly, no rales, wheezes, or rhonchi.
Neuro: CN 2-12 intact, non-focal.
Psych: appears anxious
CT LUE: Comminuted, intra-articular distal left humeral fracture
L distal humerus fx:
-ortho following
-for ORIF with olecranon osteotomy today
Autism with OCD and behavioral disturbance, Anxiety:
-psychiatry following
-cont Klonopin/Depakote/loxapine
Other problems:
Iron def anemia: Hb stable
HTN: cont clonidine
Seizure d/o: cont Depakote
h/o Esophagitis: cont PPI
FULL/Heparin
[2025-05-20] MEDS: VALIUM INJECTION 5 MG IV (10:45)
--- NOTE | 2025-05-20 10:48 | PTCARENOTE ---
pt agitated, swinging and chasing caregiver around room. per resident ok to give x1 dose valium. see MAR
--- NOTE | 2025-05-20 12:56 | PTCARENOTE ---
report called to OR. pt still agitated, uncooperative. hitting his chest and spitting. family and caregivers at bedside for support. Concern for transport to OR. staff still unable to get pt to wear gown/complete CHG wipes. OR nurse to discuss with
anesthesia RE: safe plan to transport as pt will not be able to tolerate sitting in holding area.
[2025-05-20] MEDS: HALDOL 2 MG IV (13:15)
--- NOTE | 2025-05-20 13:21 | PTCARENOTE ---
Dr. Gray and anaesthesia at at bedside IV haldol ordered x1 now, disregard EKG at this time d/t agitation and need to get pt to OR safely. family and facility staff at bedside in agreement with POC
--- NOTE | 2025-05-20 15:53 | CM ---
CM following re: discharge planning.
Reviewed pt's chart, met with pt. pt's mother and pt's boarding home staff members at bedside.
Pt is a 29 year old male, admitted with primary dx of Distal radial humerus fracture. PMH includes: autism.
Per pt's parents, pt is non verbal, understands and nodding his head to yes/no questions/answers. Pt lives in a boarding home alone with 24/7 caregiver services. Per [facility] abrasives sales representative Parth [phone], pt is independent with
functional ability and requires 24/7 care due to autism spectrum disorder. Per Parth, pt will be accepted n\\back to their services when medically and behaviorally stable. Per Parth pt will need VN services at discharge and [facility] requested. A
referral to [facility] made.
Psychiatry following, will follow with recommendation.
PCP: Woody Hernandez
Pharmacy: [facility].
D/c plan: home with [facility] and 24/7 caregiver services.
--- NOTE | 2025-05-20 16:58 | W.IMMPOSTOP ---
Surgical Immed Post Op Note
-
Primary Surgeon: Marina
Pre-op Diagnosis: Left distal humerus fracture
Post-op Diagnosis: Same
Procedure Performed: Left distal humerus ORIF with olecranon osteotomy and ORIF
Anesthesia Type: General and nerve block
Specimen / Cultures: None
Estimated Blood Loss: 20cc
Complications: None
Operative Findings: Dictated
Plan:
- VILMA MILLER. Sling and splint
- Follow up in the office in 2 weeks for staple removal and x-rays
[2025-05-20] MEDS: NON-FORMULARY ITEM PO (17:52)
--- NOTE | 2025-05-20 18:40 | PTCARENOTE ---
pt returned from PACU, lethargic but easily aroused. 3L NC. merrick wrap and sling LUE CDI. Brisk cap refill. Caregivers at bedside.
--- NOTE | 2025-05-20 19:17 | W.PN.UPDATE ---
Update Note
Progress Note Update
attempted to see pt at 4 pm, but at procedure. continue current management, will see in am
[2025-05-20] MEDS: CATAPRES 0.1 MG PO (19:34)
[2025-05-20] MEDS: NON-FORMULARY ITEM 75 MG PO (19:49)
--- NOTE | 2025-05-21 02:36 | DOWNTIME ---
There was a [employer] Client Clutch Operator Downtime on 05/21/2025 from 0100 to 05/21/2025 at 0235. Downtime documentation of patient's care, including medication administrations, has been reconciled in the electronic record per guidelines. Refer to the
patient's paper chart under the miscellaneous tab to see printed paper medication records and downtime forms.
[2025-05-21 03:14] VITALS: BP 117/81
--- NOTE | 2025-05-21 05:37 | PTCARENOTE ---
pt cooperative this shift. very drowsy but arousable- inc of large amt of urine - cleaned up- not cooperative with sling
[2025-05-21 05:52] LABS: Hematocrit 32.7 % (39.0-52.0); Hemoglobin 10.6 g/dL (13.0-18.0); Mean Corp Hgb Conc. 32.4 g/dL (33.0-37.0); Mean Corpuscular Volume 77.9 fL (80.0-94.0); Nucleated Red Blood Cells % 0 % (-); Platelet Count 231 10^3/uL (130-400); Red Cell Dist. Width 13.5 % (11.5-14.5)
[2025-05-21 06:08] LABS: Blood Urea Nitrogen 16 mg/dl (9-20); Calcium 8.6 mg/dl (8.4-10.2); Carbon Dioxide 29 mmol/L (22-30); Chloride 103 mmol/L (98-107); Estimated Creatinine Clearance > 125 ml/min; Glucose 105 mg/dl (70-99); Magnesium 2.5 mg/dl (1.6-2.3); Potassium 4.8 mmol/L (3.5-5.1); Sodium 135 mmol/L (135-145); eGFR > 60.00
[2025-05-21 07:05] VITALS: BP 122/70
--- NOTE | 2025-05-21 07:17 | W.PN.ORTHO ---
Today's Communication / Plan
-
29 yo M POD1 left distal humerus ORIF with olecranon osteotomy under the direction of Dr. Gray
--Continue with immobilization in splint. Sling for comfort. Non-weight bearing to left upper extremity.
--Pain control prn. Ice and elevation for edema control.
--Hgb 10.6 this AM, continue to monitor.
--Case management consult for dc planning.
--Orthopedics will continue to follow along.
Assessment
.
Distal Motor Intact: Yes
Dressing:
Clean, dry and intact.
Plan
.
Surgery / Date: Left distal humerus ORIF
Activity:
Out of bed.
PT/OT
Subjective
.
.:
Drake is POD1 following his left distal humerus ORIF with olecranon osteotomy performed by Dr. Gray this morning. He was sleeping comfortably in bed this morning. He was arousable, and did provide affirmation that he had some discomfort in the elbow,
but promptly fell back asleep.
Vital Signs and Labs
.
Vital Signs and Labs:
Lab Results
05/21/25 05:32
05/21/25 05:32
Temp Pulse Resp BP Pulse Ox
97.5 F 85 16 117/81 98
05/21/25 03:14 05/21/25 03:14 05/21/25 03:14 05/21/25 03:14 05/21/25 03:14
Non-invasive Hgb result: 8.6
Physical Exam
-
Directed exam of the left upper extremity reveals surgical dressing clean, dry and intact. Good color and warmth of fingers. Patient sleeping, and did not respond to request to move fingers or hand. He did wiggle his fingers slightly while I was at
the bedside.
[2025-05-21] MEDS: KLONOPIN 2 MG PO ×3 (08:05→17:18)
[2025-05-21] MEDS: METAMUCIL, KONSYL 1 PACKET PO (08:06)
[2025-05-21] MEDS: FEOSOL 325 MG PO (08:06)
[2025-05-21] MEDS: DEPAKOTE (12 HR RELEASE) 750 MG PO ×2 (08:06→20:51)
[2025-05-21] MEDS: HEPARIN 5000 UNITS SC ×2 (08:06→20:51)
[2025-05-21] MEDS: ZYRTEC 10 MG PO (08:06)
[2025-05-21] MEDS: PROTONIX 20 MG PO (08:06)
[2025-05-21] MEDS: NON-FORMULARY ITEM 50 MG PO (08:07)
--- NOTE | 2025-05-21 08:43 | VNURNOTE ---
Chart reviewed. Checked w/[employer] pool supervisor John PM- [facility] does not accept pt's insurance. KURTIS Rawls notified.
PM-[facility] unable to accept.
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
--- NOTE | 2025-05-21 09:50 | W.PN.UPDATE ---
Update Note
Progress Note Update
I saw and evaluated the patient. I reviewed the resident�s note and agree with findings and plan as documented in the resident�s note.
Pt nonverbal.
Gen: NAD, Awake and alert
Eyes: EOMI, PERRLA, no scleral icterus.
Neck: supple.
CV: remains tachy, reg rhythm, +S1/S2, no m/r/g.
Resp: remains CTAB anteriorly, no rales, wheezes, or rhonchi.
Neuro: CN 2-12 intact, non-focal.
Psych: appears mildly anxious
CT LUE: Comminuted, intra-articular distal left humeral fracture
L distal humerus fx:
-s/p Left distal humerus ORIF with olecranon osteotomy and ORIF on 05/20/25
-ortho following
Autism with OCD and behavioral disturbance, Anxiety:
-psychiatry following. With agitation I have asked Dr. Lutz to see in follow up today.
-cont Klonopin/Depakote/loxapine
Other problems:
Iron def anemia: With ABLA due to OR, trend Hb
HTN: cont clonidine
Seizure d/o: cont Depakote
h/o Esophagitis: cont PPI
FULL/Heparin
Dispo: Medically cleared for d/c from my standpoint. Will d/w ortho.
--- NOTE | 2025-05-21 10:00 | PTCARENOTE ---
pt removed merrick bandage and splint again. splint reapplied and rewrapped
--- NOTE | 2025-05-21 10:19 | W.PN.UPDATE ---
Update Note
Progress Note Update
I was notified by the nurse that the patient is agitated and is removing the splint and postop dressing
Unfortunately, because of the postop swelling, a cast cannot be applied
I contacted the primary team asking to help control with medications
We can consider a cast in 2-3 days if the swelling subsides and risk of compartment syndrome is minimized.
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
--- NOTE | 2025-05-21 11:20 | W.PN.UPDATE ---
Update Note
Progress Note Update
patient seen chart reviewed. discussed with nursing and with caretakers at bedside. patient is a 29 year old patient dx with asd. resides in a intermediate with 24 hour supervision . he is admitted w fx of distal requiring surgical intervention. the
wound cannot be casted due to swelling. the patient has been intermittently agitated. his caretakers are very concerned that he will start ripping out his sutures. we discussed how the wound could be bandaged to keep him from removing the mango.
caretakers will demonstrate to nursing. when i saw him for the moment he was calm. attending has ordered 5 mg valium. if it is effective will consider standing dose. if he is too sedated will try 2 mg up to tid. have increased depakote by 500 mg
noted his levels were higher in the past than currently. if he has a level between 100 and 150 for agitation that is tolerable as long as liver function is okay which it is. will stop by this afternoon to see how he is doing.
[2025-05-21 11:30] VITALS: BP 135/86
[2025-05-21] MEDS: VALIUM INJECTION 5 MG IV ×3 (11:32→20:51)
--- NOTE | 2025-05-21 13:01 | CM ---
CM following re: discharge planning.
Reviewed pt's chart, met with pt and boarding home team at bedside.
PT and OT evaluations noted - pt has no PT/OT skilled needs.
Psychiatrist following to adjust medications to improve mood and behaviors.
[facility] they do not accept pt's insurance and at this time pt has no skilled PT/OT needs.
D/C plan: return back to his living arrangement at a boarding home with 24/7caregiver services. Boarding home team to transport at discharge.
CM will follow with discharge plan updates as hospitalization progresses
[2025-05-21] MEDS: DEPAKOTE (12 HR RELEASE) 500 MG PO (13:26)
[2025-05-21 15:05] VITALS: BP 136/78
--- NOTE | 2025-05-21 15:30 | PTCARENOTE ---
pt resting in bed not agitated at this time. tachycardic, heart rate in 140s- ekg obtained. Dr Bautista notified.
--- NOTE | 2025-05-21 15:33 | W.PN.UPDATE ---
Update Note
Progress Note Update
returned to see patient nursing reports as do attendants that valium was helpful but 'wearing off' will order tid. hopefully will be casted tomorrow. left as well a prn of valium 2 mg iv q 8h for agitation will see in am
[2025-05-21] MEDS: DILAUDID 0.5 MG IV ×2 (16:50→20:50)
[2025-05-21] MEDS: CATAPRES 0.1 MG PO (17:18)
[2025-05-21] MEDS: NON-FORMULARY ITEM 75 MG PO (17:19)
[2025-05-21 23:00] VITALS: BP 150/64
[2025-05-22] MEDS: DILAUDID 0.5 MG IV ×2 (03:56→07:08)
[2025-05-22] MEDS: VALIUM INJECTION 2 MG IV (03:57)
[2025-05-22 05:44] LABS: Hematocrit 31.6 % (39.0-52.0); Hemoglobin 10.2 g/dL (13.0-18.0); Mean Corp Hgb Conc. 32.3 g/dL (33.0-37.0); Mean Corpuscular Volume 78.2 fL (80.0-94.0); Nucleated Red Blood Cells % 0 % (-); Platelet Count 207 10^3/uL (130-400); Red Cell Dist. Width 13.6 % (11.5-14.5)
[2025-05-22 06:45] LABS: Blood Urea Nitrogen 11 mg/dl (9-20); Calcium 9.1 mg/dl (8.4-10.2); Carbon Dioxide 28 mmol/L (22-30); Chloride 101 mmol/L (98-107); Estimated Creatinine Clearance > 125 ml/min; Glucose 109 mg/dl (70-99); Magnesium 2.0 mg/dl (1.6-2.3); Potassium 4.0 mmol/L (3.5-5.1); Sodium 136 mmol/L (135-145); eGFR > 60.00
[2025-05-22 07:05] VITALS: BP 137/87
[2025-05-22] MEDS: VALIUM INJECTION 5 MG IV (07:09)
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
--- NOTE | 2025-05-22 08:09 | W.PN.UPDATE ---
Update Note
Progress Note Update
I saw and evaluated the patient. I reviewed the resident�s note and agree with findings and plan as documented in the resident�s note.
Pt nonverbal.
Gen: NAD, Awake and alert
Eyes: EOMI, PERRLA, no scleral icterus.
Neck: supple.
CV: Continues to remain tachy, reg rhythm, +S1/S2, no m/r/g.
Resp: Continues to remain CTAB anteriorly, no rales, wheezes, or rhonchi.
Neuro: CN 2-12 intact, non-focal.
Psych: Still appears mildly anxious
CT LUE: Comminuted, intra-articular distal left humeral fracture
L distal humerus fx:
-s/p Left distal humerus ORIF with olecranon osteotomy and ORIF on 05/20/25
-LUE cast placed 05/22/25AM
-ortho following
Autism with OCD and behavioral disturbance, Anxiety:
-psychiatry following
-cont Klonopin/Depakote/loxapine/Valium
Other problems:
Iron def anemia: With ABLA due to OR, Hb stable
HTN: cont clonidine
Seizure d/o: cont Depakote
h/o Esophagitis: cont PPI
FULL/Heparin
Medically cleared for d/c. Case management aware.
Total time spent on d/c = 31 min. This included today's physical exam, progress note, review of laboratory and diagnostic data, preparation of discharge documents and prescriptions, and discussions about the pt's hospital course and discharge plan
with the patient and other medical biller coder involved in the patient's care.
--- NOTE | 2025-05-22 08:15 | W.PN.ORTHO ---
Today's Communication / Plan
-
A well-padded long-arm cast applied to the left upper extremity
Strict nonweightbearing left upper extremity
Elevation on 2 or 3 pillows to help control edema/pain
Orthopedics to continue to follow
Follow-up 14 days postop for cast removal and skin clip removal
Assessment
.
Distal Motor Intact: Yes
Dressing:
Left upper extremity splint was removed. There is edema with ecchymosis. The incision was meticulously cleaned with Betadine. Sterile 4 x 4's, ABDs, Kerlix and Webril were overwrapped. A long-arm cast was then applied. Distal neurovascular was
grossly intact.
Plan
.
Surgery / Date: Left distal humerus ORIF
Activity:
Out of bed.
PT/OT
Discharge Plan: SNF
Subjective
.
.:
Patient seen with Dr. Gray.
Patient resting comfortably.
Vital Signs and Labs
.
Vital Signs and Labs:
Lab Results
05/22/25 05:37
05/22/25 05:37
Temp Pulse Resp BP Pulse Ox
98.8 F 109 16 137/87 96
05/22/25 07:05 05/22/25 07:05 05/22/25 07:05 05/22/25 07:05 05/22/25 07:05
Non-invasive Hgb result: 8.6
[2025-05-22] MEDS: DEPAKOTE (12 HR RELEASE) 750 MG PO ×2 (09:15→21:28)
[2025-05-22] MEDS: PROTONIX 20 MG PO (09:15)
[2025-05-22] MEDS: ZYRTEC 10 MG PO (09:15)
[2025-05-22] MEDS: FEOSOL 325 MG PO (09:15)
[2025-05-22] MEDS: HEPARIN 5000 UNITS SC ×2 (09:16→21:25)
[2025-05-22] MEDS: METAMUCIL, KONSYL 1 PACKET PO (09:16)
[2025-05-22] MEDS: NON-FORMULARY ITEM 50 MG PO (09:17)
[2025-05-22] MEDS: KLONOPIN 2 MG PO ×3 (09:19→17:40)
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
--- NOTE | 2025-05-22 13:15 | W.PN.UPDATE ---
Update Note
Progress Note Update
I updated the detention's nurse, Zofia, over the phone [phone]. Awaiting repeat L-elbow Xray, then, if cleared by ortho, will d/c.
--- NOTE | 2025-05-22 14:19 | W.PN.UPDATE ---
Update Note
Progress Note Update
patient seen chart reviewed. the patient was sleeping when i attempted to speak to him today. two aides were present as well as a woman whom i assume is in charge of the facility where he resides. i met with her and with patient's nurse bee "Alfredo"kavin for over thirty minutes. i went over the changes psych had made in his medications specifically depakote and why. explained to her that his level had been on the high side BUT in psych we do use levels between 100 and 150 for agitation/mood
issues etc. his level when i saw him for the first time on monday as in the 60's. with the increase by 500 mg which should be given at two pm it will hopefully be higher and i would check it in one week increase as indicated. she expressed
that she was fearful that he would be aggressive at the detention . she seemed to want a guarantee that he would be cooperative upon dc which unfortunately i cannot give her. i did explain that he had been given iv valium yesterday given that he
was agitated and in some pain but i did not want to oversedate him at home . noted he was already on 2 mg klonopin tid. i went through all of his meds with the help of ms vale and explained to her that dr mancilla would be doing the discharge and send
the scrips. she said he could not be on prn meds for pain. sent this info to dr mancilla in a text and he said he would take care of it.
[2025-05-22] MEDS: DEPAKOTE (12 HR RELEASE) 500 MG PO (15:08)
[2025-05-22 15:55] VITALS: BP 146/94
[2025-05-22] MEDS: TYLENOL 1000 MG PO ×2 (16:02→21:26)
--- NOTE | 2025-05-22 16:04 | CM ---
Addendum entered by Daina Ch 05/22/25 17:02:
Updated johnathan nurse that we spoke with Zofia from the [facility] (primary contact) and per Zofia's request patient will be staying overnight to monitor over night. Zofia will call the caregiver in the room with patient. If they decide to take
patient home tonight, d/c order is already in.
Original Note:
lead net software developer and Director reached out to Zofia, Nurse from [facility] and had a discussion about returning home. Per Zofia she is not the patients guardian, she just works with the patient at the home. Patient does have 24 hour caregivers in
the home. Patient received IV medications this am and she would like to see how patient does overnight off the IV medications and how he does with the medication adjustments before accepting him back. Zofia did speak with the MD today and her
co-worker spoke with psychiatry here at the hospital. Anticipate d/c tomorrow.
[2025-05-22] MEDS: CATAPRES 0.1 MG PO (17:40)
[2025-05-22] MEDS: NON-FORMULARY ITEM 75 MG PO (17:41)
--- NOTE | 2025-05-22 21:00 | PTCARENOTE ---
Ms. Daryl Pandya from [employer] in requesting information on patient. Nursing yard general car supervisor spoke with her to handle her request.
[2025-05-22 23:03] VITALS: BP 139/80
[2025-05-23 06:04] LABS: Hematocrit 31.0 % (39.0-52.0); Hemoglobin 10.0 g/dL (13.0-18.0); Mean Corp Hgb Conc. 32.3 g/dL (33.0-37.0); Mean Corpuscular Volume 77.3 fL (80.0-94.0); Nucleated Red Blood Cells % 0 % (-); Platelet Count 230 10^3/uL (130-400); Red Cell Dist. Width 13.6 % (11.5-14.5)
[2025-05-23 06:30] LABS: Blood Urea Nitrogen 14 mg/dl (9-20); Calcium 8.7 mg/dl (8.4-10.2); Carbon Dioxide 28 mmol/L (22-30); Chloride 102 mmol/L (98-107); Estimated Creatinine Clearance > 125 ml/min; Glucose 109 mg/dl (70-99); Magnesium 2.0 mg/dl (1.6-2.3); Potassium 4.3 mmol/L (3.5-5.1); Sodium 137 mmol/L (135-145); eGFR > 60.00
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
--- NOTE | 2025-05-23 08:10 | W.PN.UPDATE ---
Update Note
Progress Note Update
I saw and evaluated the patient. I reviewed the resident�s note and agree with findings and plan as documented in the resident�s note.
Pt nonverbal.
Gen: NAD, Awake and alert
Eyes: EOMI, PERRLA, no scleral icterus.
Neck: supple.
CV: RRR, +S1/S2, no m/r/g.
Resp: CTAB anteriorly, no rales, wheezes, or rhonchi.
Neuro: CN 2-12 intact, non-focal.
Psych: calm
CT LUE: Comminuted, intra-articular distal left humeral fracture
L elbow Xray: There is an overlying cast which obscures fine bony detail. Surgical plates and screws have been placed along the posterior distal left humerus and proximal posterior olecranon. Alignment now is normal. The fracture line in the distal
left humerus is visible. There is mild subcutaneous emphysema. There are multiple skin mango located posteriorly about the left elbow joint.
L distal humerus fx:
-s/p Left distal humerus ORIF with olecranon osteotomy and ORIF on 05/20/25
-LUE cast placed 05/22/25AM
-ortho following
Autism with OCD and behavioral disturbance, Anxiety:
-psychiatry following
-cont Klonopin/Depakote/loxapine
Other problems:
Iron def anemia: With ABLA due to OR, Hb stable
HTN: cont clonidine
Seizure d/o: cont Depakote
h/o Esophagitis: cont PPI
FULL/Heparin
Remains medically cleared for d/c. Case management aware.
Total time spent on d/c = 31 min. This included today's physical exam, progress note, review of laboratory and diagnostic data, preparation of discharge documents and prescriptions, and discussions about the pt's hospital course and discharge plan
with the patient and other director of medical services involved in the patient's care.
--- NOTE | 2025-05-23 08:17 | W.PN.UPDATE ---
Update Note
Progress Note Update
Patient resting, currently on a 1:1. LAC in [address] LUE. no lifting or WB through the LUE. [facility] Dr. Bautista and CM. Continue with elevation on pillows for swelling control. Outpatient follow-up
recommended in 2 weeks for cast and staple removal
[2025-05-23 08:25] VITALS: BP 126/80
[2025-05-23] MEDS: TYLENOL 1000 MG PO (08:26)
[2025-05-23] MEDS: DEPAKOTE (12 HR RELEASE) 750 MG PO (08:26)
[2025-05-23] MEDS: KLONOPIN 2 MG PO ×2 (08:26→12:10)
[2025-05-23] MEDS: METAMUCIL, KONSYL 1 PACKET PO (08:26)
[2025-05-23] MEDS: NON-FORMULARY ITEM 50 MG PO (08:27)
[2025-05-23] MEDS: PROTONIX 20 MG PO (08:27)
[2025-05-23] MEDS: FEOSOL 325 MG PO (08:27)
[2025-05-23] MEDS: ZYRTEC 10 MG PO (08:28)
[2025-05-23] MEDS: HEPARIN 5000 UNITS SC (08:28)
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
--- NOTE | 2025-05-23 12:24 | CM ---
CM following re: discharge planning.
Reviewed pt's chart, met with pt. pt's two caregivers with warehouse consultantmanager Alba at bedside.
Discharge order in.
mental health program manager Parth stated that their van already here and she just awaiting for discharge instructions to bring their client home. Parth stated she has hudson managing the pt for the past 5 years and and she hopes that pt's behavior will be calm.
D/C plan: return back to [facility] residential home with two caregivers 24/04. mental health program manager with 2 caregiver will transport pt home on their van.
[2025-05-23 12:38] VITALS: BP 145/78
== END 2025-05-23 12:56 | disposition home or self-care (01) | DRG 493 ==
LOC: 2 SOUTH 15:00
PROVIDERS: Clinical Nurse Specialist Family Health; ADMITTING PHYSICIAN Internal Medicine; ATTENDING PHYSICIAN Internal Medicine; CONSULT PHYSICIAN Psychiatry & Neurology Psychiatry; EMERGENCY PHYSICIAN Emergency Medicine; OTHER PHYSICIAN Orthopaedic Surgery
PROC: 0PSG04Z Reposition Left Humeral Shaft with Internal Fixation Device, Open Approach (ICD-10-PCS; 2025-05-20)
DX: S42.492A Other displaced fracture of lower end of left humerus, initial encounter for closed fracture (principal); F84.0 Autistic disorder; D50.9 Iron deficiency anemia, unspecified; F41.9 Anxiety disorder, unspecified; F42.9 Obsessive-compulsive disorder, unspecified; F63.9 Impulse disorder, unspecified; R56.9 Unspecified convulsions; K59.09 Other constipation; K20.90 Esophagitis, unspecified without bleeding; K64.9 Unspecified hemorrhoids; L30.9 Dermatitis, unspecified; R45.88 Nonsuicidal self-harm; I10 Essential (primary) hypertension; R45.1 Restlessness and agitation; W18.39XA Other fall on same level, initial encounter; Z79.899 Other long term (current) drug therapy
CPT/HCPCS: 73070; 73080; 73200; 76000; 80048; 83735; 85025; 86850; 86900; 86901; 87070; 93005; 96374; 96375; 97163; 97167; 99285